=== PATIENT | male | born 1960 | race Caucasian/White ===

== ENCOUNTER 2017-01-14 13:52 | Emergency (ER) | payer OTHER ==
--- NOTE | 2017-01-14 14:34 | DIAGNOSTIC IMAGING REPORT ---
PROCEDURE: XR HAND 3 OR 4 VIEWS - RIGHT INDICATION: TRAUMA/INJURY TECHNIQUE: Four views. COMPARISON: None. FINDINGS: Laceration over the dorsum of the hand. No evidence of a radiopaque foreign body. No fracture. 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 IMPRESSION: 1. Laceration over the dorsum of the hand. No fracture or radiopaque foreign body.
--- NOTE | 2017-01-14 14:46 | ED CLINICAL REPORT ---
Clinical Report - Physicians/Mid Levels [facility] [address] [place] [address] 01/14/2017 13:52 Patient: NAHUN GÓMEZ Time Seen: 14:17 Jan 14 2017. Arrived- By private vehicle. Historian- patient. HISTORY OF PRESENT ILLNESS Location of injuries- right hand. Chief Complaint: DOG BITE. The injury occurred just prior to arrival. The animal reportedly appeared well and the immunization status of the animal is unknown. The animal was not captured. Occurred on a street. This was a "provoked" attack. No skin rash or dizziness. 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 Treatment INTERNAL MEDICINE PHYSICIAN ASSISTANT- (Dog bite from neighbors dog prior to arrival. Dog has been around and family has seen a doctor over the last few months, unsure of exactin his immunizations.). REVIEW OF SYSTEMS No headache, difficulty breathing, nausea or fever. All systems otherwise negative, except as recorded above. PAST HISTORY See nurses notes. L. Hand dominant, no prior R. hand injuries. Has not had a prior allergic reaction. Tetanus immunization status is unknown. SOCIAL HISTORY Smoker- current status unknown. Alcohol use. History of drug use: marijuana. Not an IV drug user. ADDITIONAL NOTES The nursing notes have been reviewed. PHYSICAL EXAM Vital Signs: 01/14/2017 13:59 BP: 152/80. HR: 101. RR: 18. O2 saturation: 97%. Temp: 98.2 F. Pain level now: 3/10. Appearance: Alert. No acute distress. No backboard or C-collar. Neck: Normal inspection. CVS: Heart sounds normal. Pulses normal. No JVD. Respiratory: Chest normal on inspection. Chest nontender. No chest wall injury. Back: Normal inspection. No tenderness. Skin: Skin warm. Extremities: Right hand: 3.0 cm laceration. SEE LACERATION PROCEDURE NOTE #1. (Vertical and horizontal laceration with a sharp 90 edge on the lateral dorsal aspect from the proximal hand extending into the ulnar aspect of the dorsal side. Good distal range of motion, extension of all digits, with no loss of sensation. Vascular intact.). Pelvis stable. Neuro: [place] Coma Scale: 15- eyes open spontaneously (4); best verbal response- oriented x 3 (5); best motor response- obeys commands (6). Oriented X 3. LABS, X-RAYS, AND EKG Rt Hand X-ray: (IMPRESSION: 1. Laceration over the dorsum of the hand. No fracture or radiopaque foreign body. Electronically Final signed by:Trev Reilly MD 01/14/2017 2:34:07 PM). PROGRESS AND PROCEDURES Laceration Repair: Time: 15:10 Jan 14 2017. Location: (r. hand). Time-out completed immediately before the procedure. Length: 4 cm. Complexity: simple (local anesthesia used and sutured). Wound depth/shape- curved and involving fascia. Wound is clean. Distal neuro/vascular/tendon status normal. Local anesthesia provided using 1% lidocaine with epi. Closure of skin: interrupted 4-0 (13 non absorb). Course of Care: Giving the length and the gaping nature of visits injury, laceration was repaired. Patient was given Augmentin. No signs of neurovascular compromise of fracture. No signs of foreign body. Patient very stable. Fall palpation. 01/14/2017 14:55 BP: 156/77. HR: 97. RR: 16. O2 saturation: 97%. Pain level now: 3/10. Patient is stable. Symptoms better. Patient/family counseled. Disposition: Discharged. CLINICAL IMPRESSION Dog bite to the right hand. INSTRUCTIONS Apply ice. Protect wound and keep wound area clean. Apply bacitracin twice daily. Sutures should be removed. Elevate affected areas above chest level. ([facility] Address: [address] [place] [address] [place]: Address: [address] [place] [address] ). Warnings: TETANUS: You were given a tetanus shot during your visit. Make a note for future reference. Prescription Medications: Hydrocodone/APAP 5mg / 325mg: take 1 orally every 6 hours as needed for pain. Dispense five (5). (prn breakthrough pain) Augmentin 875 mg: take 1 tablet orally every 12 hours for 7 days. Dispense fourteen (14). No refills. Substitution is permissible. Ibuprofen 800 mg tablets: take 1 tablet orally every 8 hours for 5 days, as needed for pain. Dispense ten (10). No refill. Follow-up with: Tj Harrell MD, Family [facility], , [facility], [address] [place] [address] Follow up in six days. Call for the next available appointment. (Electronically signed by Daiana Mayes P.A.-C 01/14/2017 15:10)
--- NOTE | 2017-01-14 14:46 | ED CLINICAL REPORT ---
Clinical Report - Physicians/Mid Levels [facility] [address] [place] [address] 01/14/2017 13:52 Patient: NAHUN GÓMEZ Time Seen: 14:17 Jan 14 2017. Arrived- By private vehicle. Historian- patient. HISTORY OF PRESENT ILLNESS Location of injuries- right hand. Chief Complaint: DOG BITE. The injury occurred just prior to arrival. The animal reportedly appeared well and the immunization status of the animal is unknown. The animal was not captured. Occurred on a street. This was a "provoked" attack. No skin rash or dizziness. 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 Treatment IMMERSION METAL CLEANER- (Dog bite from neighbors dog prior to arrival. Dog has been around and family has seen a doctor over the last few months, unsure of exactin his immunizations.). REVIEW OF SYSTEMS No headache, difficulty breathing, nausea or fever. All systems otherwise negative, except as recorded above. PAST HISTORY See nurses notes. L. Hand dominant, no prior R. hand injuries. Has not had a prior allergic reaction. Tetanus immunization status is unknown. SOCIAL HISTORY Smoker- current status unknown. Alcohol use. History of drug use: marijuana. Not an IV drug user. ADDITIONAL NOTES The nursing notes have been reviewed. PHYSICAL EXAM Vital Signs: 01/14/2017 13:59 BP: 152/80. HR: 101. RR: 18. O2 saturation: 97%. Temp: 98.2 F. Pain level now: 3/10. Appearance: Alert. No acute distress. No backboard or C-collar. Neck: Normal inspection. CVS: Heart sounds normal. Pulses normal. No JVD. Respiratory: Chest normal on inspection. Chest nontender. No chest wall injury. Back: Normal inspection. No tenderness. Skin: Skin warm. Extremities: Right hand: 3.0 cm laceration. SEE LACERATION PROCEDURE NOTE #1. (Vertical and horizontal laceration with a sharp 90 edge on the lateral dorsal aspect from the proximal hand extending into the ulnar aspect of the dorsal side. Good distal range of motion, extension of all digits, with no loss of sensation. Vascular intact.). Pelvis stable. Neuro: [place] Coma Scale: 15- eyes open spontaneously (4); best verbal response- oriented x 3 (5); best motor response- obeys commands (6). Oriented X 3. LABS, X-RAYS, AND EKG Rt Hand X-ray: (IMPRESSION: 1. Laceration over the dorsum of the hand. No fracture or radiopaque foreign body. Electronically Final signed by:Trev Reilly MD 01/14/2017 2:34:07 PM). PROGRESS AND PROCEDURES Laceration Repair: Time: 15:10 Jan 14 2017. Location: (r. hand). Time-out completed immediately before the procedure. Length: 4 cm. Complexity: simple (local anesthesia used and sutured). Wound depth/shape- curved and involving fascia. Wound is clean. Distal neuro/vascular/tendon status normal. Local anesthesia provided using 1% lidocaine with epi. Closure of skin: interrupted 4-0 (13 non absorb). Course of Care: Giving the length and the gaping nature of visits injury, laceration was repaired. Patient was given Augmentin. No signs of neurovascular compromise of fracture. No signs of foreign body. Patient very stable. Fall palpation. 01/14/2017 14:55 BP: 156/77. HR: 97. RR: 16. O2 saturation: 97%. Pain level now: 3/10. Patient is stable. Symptoms better. Patient/family counseled. Disposition: Discharged. CLINICAL IMPRESSION Dog bite to the right hand. INSTRUCTIONS Apply ice. Protect wound and keep wound area clean. Apply bacitracin twice daily. Sutures should be removed. Elevate affected areas above chest level. ([facility] Address: [address] [place] [address] [place]: Address: [address] [place] [address] ). Warnings: TETANUS: You were given a tetanus shot during your visit. Make a note for future reference. Prescription Medications: Hydrocodone/APAP 5mg / 325mg: take 1 orally every 6 hours as needed for pain. Dispense five (5). (prn breakthrough pain) Augmentin 875 mg: take 1 tablet orally every 12 hours for 7 days. Dispense fourteen (14). No refills. Substitution is permissible. Ibuprofen 800 mg tablets: take 1 tablet orally every 8 hours for 5 days, as needed for pain. Dispense ten (10). No refill. Follow-up with: Tj Harrell MD, Family [facility], , [facility], [address] [place] [address] Follow up in six days. Call for the next available appointment. (Electronically signed by Daiana Mayes P.A.-C 01/14/2017 15:10)
--- NOTE | 2017-01-14 14:46 | ED NURSING NOTES ---
Clinical Report - Nurses [facility] [address] [place] [address] 01/14/2017 13:52 Patient: NAHUN GÓMEZ TRIAGE Triage time 13:59. Acuity: LEVEL 4. Chief Complaint: DOG BITE. Alert. No acute distress. LILLY COMA SCORE: Lilly Coma Scale: 15- eyes open spontaneously (4); best verbal response- oriented x 4 (5); best motor response- obeys commands (6). --14:06 Rosy Howe R.N. 13:59 01/14/17. BP: 152/80. HR: 101. RR: 18. O2 saturation: 97%. Temp: 98.2 F (oral). Pain level now: 11/11. --14:06 Rosy Howe R.N. Weight: 90.7 kg. Height/Length: 71 inches. BMI: 27.9. --14:03 Rosy Howe R.N. Medications None. --14:02 Rosy Howe R.N. Medication/allergy information source: the patient. --14:06 Rosy Howe R.N. Allergies No Known Drug Allergy. --14:03 Rosy Howe R.N. History Arrived by private vehicle. Historian: patient. Accompanied by family. Primary physician (Shawn Richardson-in). Location of injuries: right hand. This occurred just prior to arrival. Animals were fighting. The animal reportedly appeared well. Animal control has been notified (not yet). PAST MEDICAL HX: Tetanus immunization status is not unknown. SOCIAL HX: Heavy tobacco smoker- less than 1 pack per day. Regular alcohol use. History of drug use: marijuana. FALL RISK ASSESSMENT: Fall risk assessment completed. No fall risk identified. FUNCTIONAL ASSESSMENT: Functional assessment: no impairments noted. LEARNING NEEDS ASSESSMENT: The learning needs assessment revealed no barriers. --14:06 Rosy Howe R.N. Assessment GENERAL / NEURO / PSYCH: Alert. Oriented X 4. Appears in no acute distress. Patient appears calm and cooperative. RESPIRATORY: Respirations not labored. SKIN: Skin is warm and dry. --14:06 Rosy Howe R.N. Interventions ID band on patient. To treatment room. --14:06 Rosy Howe R.N. PHYSICAL ASSESSMENT 14:01/14/17. Ambulatory to room. GENERAL / NEURO / PSYCH: Alert. Oriented X 4. Appears in no acute distress. RESPIRATORY: Respirations not labored. EXTREMITIES: ( lac on top of right hand , bleeding controlled). SKIN: Skin is warm and dry. --14:09 Rosy Howe R.N. NURSING PROGRESS NOTES 14:01/14/17. Call light placed in reach. Side rails up x 1. Bed placed in lowest position. Brakes of bed on. --14:10 Rosy Howe R.N. 14:22 01/14/2017 Augmentin (Amoxicillin-Pot Clavulanate) PO Tablets 875 mg given. Allergies verified and confirmed 5 rights. --14:22 Rosy Howe R.N. 14:23 01/14/2017 TDAP IM 0.5 mL given. (Lot#: [id number], expiration date: 06/11/2018, Obiee Obia Solution Architect: sanofi pasteur). Given in the left deltoid. Allergies verified and confirmed 5 rights. Vaccine information statement provided to the patient. --14:23 Rosy Howe R.N. Patient walked to radiology. Patient walked back to ED from radiology with tech. --14:23 Rosy Howe R.N. Applied clean dressing consisting of 4x4 gauze, following the application of antibiotic ointment (bacitracin). Secured with tape and kerlix. --14:50 Nico Avalos R.N. 14:55. Reassessment after wound repair. He is calm. Overall patient status is improved- he states feels better. CVS: Capillary refill is less than 2 seconds in the extremities. SKIN: Skin is warm and dry. --14:58 Rosy Howe R.N. 14:33 01/14/2017 Lidocaine-Epinephrine (Lidocaine-Epinephrine) Injection Injectable 2 % given. --14:58 Rosy Howe R.N. DISPOSITION / DISCHARGE Departure time: 1455. Condition at departure: improved and stable. No learning barriers present. Discharge instructions provided and reviewed with the patient. Reviewed medication(s). Prescription(s) given to the patient. Patient verbalized understanding. Written instructions provided in Urdu. The patient was discharged home and accompanied by spouse. He left the Emergency Department ambulatory and via private vehicle. FALL RISK ASSESSMENT: Fall risk assessment completed. No fall risk identified. --14:57 Rosy Howe R.N. 14:55 01/14/17. BP: 156/77. HR: 97. RR: 16. O2 saturation: 97% on room air. Pain level now: 11/11. --14:57 Rosy Howe R.N. Locked/Released at 01/14/2017 14:59 by Rosy Howe R.N.
--- NOTE | 2017-01-14 14:46 | ED NURSING NOTES ---
Clinical Report - Nurses [facility] [address] [place] [place] [address] 01/14/2017 13:52 Patient: NAHUN GÓMEZ TRIAGE Triage time 13:59. Acuity: LEVEL 4. Chief Complaint: DOG BITE. Alert. No acute distress. LILLY COMA SCORE: Lilly Coma Scale: 15- eyes open spontaneously (4); best verbal response- oriented x 4 (5); best motor response- obeys commands (6). --14:06 Rosy Howe R.N. 13:59 01/14/17. BP: 152/80. HR: 101. RR: 18. O2 saturation: 97%. Temp: 98.2 F (oral). Pain level now: 11/11. --14:06 Rosy Howe R.N. Weight: 90.7 kg. Height/Length: 71 inches. BMI: 27.9. --14:03 Rosy Howe R.N. Medications None. --14:02 Rosy Howe R.N. Medication/allergy information source: the patient. --14:06 Rosy Howe R.N. Allergies No Known Drug Allergy. --14:03 Rosy Howe R.N. History Arrived by private vehicle. Historian: patient. Accompanied by family. Primary physician (Shawn Richardson-in). Location of injuries: right hand. This occurred just prior to arrival. Animals were fighting. The animal reportedly appeared well. Animal control has been notified (not yet). PAST MEDICAL HX: Tetanus immunization status is not unknown. SOCIAL HX: Heavy tobacco smoker- less than 1 pack per day. Regular alcohol use. History of drug use: marijuana. FALL RISK ASSESSMENT: Fall risk assessment completed. No fall risk identified. FUNCTIONAL ASSESSMENT: Functional assessment: no impairments noted. LEARNING NEEDS ASSESSMENT: The learning needs assessment revealed no barriers. --14:06 Rosy Howe R.N. Assessment GENERAL / NEURO / PSYCH: Alert. Oriented X 4. Appears in no acute distress. Patient appears calm and cooperative. RESPIRATORY: Respirations not labored. SKIN: Skin is warm and dry. --14:06 Rosy Howe R.N. Interventions ID band on patient. To treatment room. --14:06 Rosy Howe R.N. PHYSICAL ASSESSMENT 14:01/14/17. Ambulatory to room. GENERAL / NEURO / PSYCH: Alert. Oriented X 4. Appears in no acute distress. RESPIRATORY: Respirations not labored. EXTREMITIES: ( lac on top of right hand , bleeding controlled). SKIN: Skin is warm and dry. --14:09 Rosy Howe R.N. NURSING PROGRESS NOTES 14:01/14/17. Call light placed in reach. Side rails up x 1. Bed placed in lowest position. Brakes of bed on. --14:10 Rosy Howe R.N. 14:22 01/14/2017 Augmentin (Amoxicillin-Pot Clavulanate) PO Tablets 875 mg given. Allergies verified and confirmed 5 rights. --14:22 Rosy Howe R.N. 14:23 01/14/2017 TDAP IM 0.5 mL given. (Lot#: [id number], expiration date: 06/11/2018, Loom Repairer: sanofi pasteur). Given in the left deltoid. Allergies verified and confirmed 5 rights. Vaccine information statement provided to the patient. --14:23 Rosy Howe R.N. Patient walked to radiology. Patient walked back to ED from radiology with tech. --14:23 Rosy Howe R.N. Applied clean dressing consisting of 4x4 gauze, following the application of antibiotic ointment (bacitracin). Secured with tape and kerlix. --14:50 Nico Avalos R.N. 14:55. Reassessment after wound repair. He is calm. Overall patient status is improved- he states feels better. CVS: Capillary refill is less than 2 seconds in the extremities. SKIN: Skin is warm and dry. --14:58 Rosy Howe R.N. 14:33 01/14/2017 Lidocaine-Epinephrine (Lidocaine-Epinephrine) Injection Injectable 2 % given. --14:58 Rosy Howe R.N. DISPOSITION / DISCHARGE Departure time: 1455. Condition at departure: improved and stable. No learning barriers present. Discharge instructions provided and reviewed with the patient. Reviewed medication(s). Prescription(s) given to the patient. Patient verbalized understanding. Written instructions provided in Belarusian. The patient was discharged home and accompanied by spouse. He left the Emergency Department ambulatory and via private vehicle. FALL RISK ASSESSMENT: Fall risk assessment completed. No fall risk identified. --14:57 Rosy Howe R.N. 14:55 01/14/17. BP: 156/77. HR: 97. RR: 16. O2 saturation: 97% on room air. Pain level now: 11/11. --14:57 Rosy Howe R.N. Locked/Released at 01/14/2017 14:59 by Rosy Howe R.N.
--- NOTE | 2017-01-14 14:46 | ED ORDER SUMMARY ---
..... Patient: NAHUN GÓMEZ OrderSheet [facility] VisitID: [id number] [address] [place] [address] 56y, M Registration Date/Time: 01/14/2017 ORDER SHEET Weight: 90.7 kg Allergies: No Known Drug Allergy GENERAL ORDERS: Hand 3 or 4V Right Urgent (14:04 01/14/2017 Fran P.A.-C) (Ack 14:09 TBerglkylee) (14:17 TBerglkylee) (14:18 Vanda) MEDICATION ORDERS: Tdap IM 0.5 mL (NOW, per protocol) (14:03 01/14/2017 Fran P.A.-C) (Ack 14:08 Catherine R.N.) (14:23 Catherine R.N.) Lidocaine-Epinephrine Injection 2 % (soln) (NOW, place at bedside, with syringes & needles) (14:03 01/14/2017 Fran Hemphill.A.-C) (Ack 14:08 Catherine R.N.) (14:58 Catherine R.N.) Augmentin PO 875 mg (NOW) (14:04 01/14/2017 Fran P.A.-C) (Ack 14:08 Catherine R.N.) (14:22 Catherine R.N.) IV FLUIDS: ORDER SHEET NOTES: [Electronically signed by Rosy Howe R.N. (14:58 01/14/2017)] [Electronically signed by Daiana Mayes P.A.-C (15:10 01/14/2017)] [Electronically locked/signed by Rosy Howe R.N. (14:58 01/14/2017)]
--- NOTE | 2017-01-14 14:46 | ED ORDER SUMMARY ---
..... Patient: NAHUN GÓMEZ OrderSheet [facility] VisitID: [id number] [address] [place] [address] 56y, M Registration Date/Time: 01/14/2017 ORDER SHEET Weight: 90.7 kg Allergies: No Known Drug Allergy GENERAL ORDERS: Hand 3 or 4V Right Urgent (14:04 01/14/2017 Fran P.A.-C) (Ack 14:09 TBerglkylee) (14:17 TBerglkylee) (14:18 Vanda) MEDICATION ORDERS: Tdap IM 0.5 mL (NOW, per protocol) (14:03 01/14/2017 Fran P.A.-C) (Ack 14:08 Catherine R.N.) (14:23 Catherine R.N.) Lidocaine-Epinephrine Injection 2 % (soln) (NOW, place at bedside, with syringes & needles) (14:03 01/14/2017 Fran Hemphill.A.-C) (Ack 14:08 Catherine R.N.) (14:58 Catherine R.N.) Augmentin PO 875 mg (NOW) (14:04 01/14/2017 Fran P.A.-C) (Ack 14:08 Catherine R.N.) (14:22 Catherine R.N.) IV FLUIDS: ORDER SHEET NOTES: [Electronically signed by Rsoy Howe R.N. (14:58 01/14/2017)] [Electronically signed by Daiana Mayes P.A.-C (15:10 01/14/2017)] [Electronically locked/signed by Rosy Howe R.N. (14:58 01/14/2017)]
--- NOTE | 2017-01-14 15:10 | ED MED RECONCILIATION SUMMARY ---
Patient: NAHUN GÓMEZ Medication Reconciliation Report [facility] VisitID: [id number] [address] [place] [address] 56y, M Registration Date/Time: 01/14/2017 Weight: 90.7 kg Height/Length: 71 in. BMI: 27.9 ALLERGIES: No Known Drug Allergy The patient's Home Medications are listed below: NONE. The source(s) of the original Home Medication information: patient The following Medications were given to the patient in the Emergency Department: Augmentin [PO] PO 875 mg, administered: 01/14/2017 2:22:00 PM TDAP [IM] IM 0.5 mL, administered: 01/14/2017 2:23:00 PM Lidocaine-Epinephrine [Injection] Injection 2 %, administered: 01/14/2017 2:33:00 PM The following Medications were prescribed to the patient: Hydrocodone/APAP 5mg / 325mg: take 1 orally every 6 hours as needed for pain. Dispense five (5).(prn breakthrough pain) -- Daiana Mayes, P.A.-C Augmentin 875 mg: take 1 tablet orally every 12 hours for 7 days. Dispense fourteen (14). No refills. Substitution is permissible. -- Daiana Mayes, P.A.-[place] Ibuprofen 800 mg tablets: take 1 tablet orally every 8 hours for 5 days, as needed for pain. Dispense ten (10). No refill. -- Daiana Mayes, P.A.-C
--- NOTE | 2017-01-14 15:10 | ED MAR SUMMARY ---
..... Medication Administration Record [facility] [address] [place] [address] Patient: NAHUN GÓMEZ Visit ID: [id number] 56y, M Weight: 90.7 kg Height/Length: 71 in BMI: 27.9 ALLERGIES: No Known Drug Allergy Given 14:22 01/14/2017 Rosy Howe R.N. Medication Administered: AUGMENTIN [PO] (AMOXICILLIN-POT CLAVULANATE), Dose: 875 mg Tablets PO. Medication Ordered: Augmentin PO 875 mg (NOW). Given 14:23 01/14/2017 Rosy Howe RDanielaNDaniela Medication Administered: TDAP [IM], Dose: 0.5 mL IM. Medication Ordered: Tdap IM 0.5 mL (NOW, per protocol). Given 14:33 01/14/2017 Rosy Howe, RDanielaN. Medication Administered: LIDOCAINE-EPINEPHRINE [INJECTION] (LIDOCAINE-EPINEPHRINE), Dose: 2 % Injectable Injection. Medication Ordered: Lidocaine-Epinephrine Injection 2 % (soln) (NOW, place at bedside, with syringes & needles).
--- NOTE | 2017-01-14 15:10 | ED MED RECONCILIATION SUMMARY ---
Patient: NAHUN GÓMEZ Medication Reconciliation Report [facility] VisitID: [id number] [address] [place] [address] 56y, M Registration Date/Time: 01/14/2017 Weight: 90.7 kg Height/Length: 71 in. BMI: 27.9 ALLERGIES: No Known Drug Allergy The patient's Home Medications are listed below: NONE. The source(s) of the original Home Medication information: patient The following Medications were given to the patient in the Emergency Department: Augmentin [PO] PO 875 mg, administered: 01/14/2017 2:22:00 PM TDAP [IM] IM 0.5 mL, administered: 01/14/2017 2:23:00 PM Lidocaine-Epinephrine [Injection] Injection 2 %, administered: 01/14/2017 2:33:00 PM The following Medications were prescribed to the patient: Hydrocodone/APAP 5mg / 325mg: take 1 orally every 6 hours as needed for pain. Dispense five (5).(prn breakthrough pain) -- Daiana Mayes, P.A.-C Augmentin 875 mg: take 1 tablet orally every 12 hours for 7 days. Dispense fourteen (14). No refills. Substitution is permissible. -- Daiana Mayes, P.A.-[place] Ibuprofen 800 mg tablets: take 1 tablet orally every 8 hours for 5 days, as needed for pain. Dispense ten (10). No refill. -- Daiana Mayes, P.A.-C
--- NOTE | 2017-01-14 15:10 | ED DISCHARGE INSTRUCTIONS ---
Patient: NAHUN GÓMEZ General Instructions [facility] VisitID: [id number] [address] [place] [address] 56y, M Registration Date/Time: 01/14/2017 Dog bite to the right hand. INSTRUCTIONS Apply ice. Protect wound and keep wound area clean. Apply bacitracin twice daily. Sutures should be removed. Elevate affected areas above chest level. ([facility] Address: [address] [place] [address] [place]: Address: [address] [facility] [place] [address] ). Warnings: TETANUS: You were given a tetanus shot during your visit. Make a note for future reference. Prescription Medications: Hydrocodone/APAP 5mg / 325mg: take 1 orally every 6 hours as needed for pain. Dispense five (5). (prn breakthrough pain) Augmentin 875 mg: take 1 tablet orally every 12 hours for 7 days. Dispense fourteen (14). No refills. Substitution is permissible. Ibuprofen 800 mg tablets: take 1 tablet orally every 8 hours for 5 days, as needed for pain. Dispense ten (10). No refill. Follow-up with: Tj Harrell MD, [facility], , [facility], [address] [place] [address] Follow up in six days. Call for the next available appointment. ADDITIONAL INFORMATION Dog Bite If a dog has bitten you and the wound is deep enough to break the skin, an infection may occur. Therefore, you should watch for the warning signs listed below. The doctor may not close the wound completely. This is to allow fluid to drain in the event of an infection. Home Care Watch the wound for signs of infection listed below. In certain types of bites, antibiotics may be prescribed. Begin taking these as soon as possible, as directed until they are all gone. Rabies Prevention If you live in an area where rabies occurs in wild animals, the rabies virus can be passed to cats and dogs. An infected animal can pass the rabies virus to you during a bite. If ahealthy-looking pet dog has bitten you, it should be kept in a secure area for the next 10 days to watch for signs of illness. If the pet plant operations manager wont cooperate with you, contact the [facility] animal control department (or local law enforcement). If the animal becomes ill or dies [id number] days, contact your animal control department at once. The animal must be tested for rabies. If the animal stays healthy for the next 10 days, then there is no danger of rabies in the dog or you. Pets fully vaccinated against rabies (2 shots) are at very low risk for the infection. However, because human rabies is almost always fatal, any biting dog should be kept in confinement for 10 days as an extra precaution. If a stray dog bit you, contact the animal control department. They can provide information on capture, quarantine, and animal rabies testing. If you are unable to locate the animal that bit you in the next 2days, and if rabies exists in your region, you must be evaluated for the rabies vaccine series. Contact your doctor or return here promptly. All animal bites should be reported to the [facility] animal control department. If you were not given a form to fill out, you can report it yourself by calling. Follow Up with your doctor as advised. Most skin wounds heal within 10 days. However, an infection may occur even with proper treatment. Check your woundevery 6 hoursfor 2 days, then at least once a day for the next two days for the signs of infection listed below. Get Prompt Medical Attention if any of the following occur: Signs of infection: Spreading redness Increased pain or swelling Fever of 100.4F (38C) or higher, or as directed by your healthcare provider Colored fluid or pus draining from the wound Headache, confusion, strange behavior, or a seizure (signs of a rabies infection) Diphtheria Toxoid Adsorbed, Pertussis Vaccine, Acellular (Adsorbed), Tetanus Toxoid, Adsorbed Suspension for injection What is this medicine? DIPHTHERIA and TETANUS TOXOIDS; PERTUSSIS VACCINE (dif THEER ee uh and TET n us TOK soids; per TUS shashank vasquez SEEN) is used to prevent diphtheria, tetanus, and pertussis infections. How should I use this medicine? This vaccine is for injection into a muscle. It is given by a health health care sanitary technician. A copy of Vaccine Information Statements will be given before each vaccination. Read this sheet carefully each time. The sheet may change frequently. Talk to your setter molding and coremaking machines regarding the use of this vaccine in children. While the DTP vaccine may be given to children ages 6 weeks to 7 years and the Tdap vaccine may be given to children at least 10 years old, precautions do apply. What side effects may I notice from receiving this medicine? Side effects that you should report to your doctor or health health care sanitary technician as soon as possible: allergic reactions like skin rash, itching or hives, swelling of the face, lips, or tongue breathing problems fever of 103 degrees F or more flu-like symptoms inconsolable crying infection pain, tingling, numbness in the hands or feet seizures swelling of arm or leg that was injected unusually weak or tired Side effects that usually do not require immediate medical attention (report these side effects to your doctor or health health care sanitary technician if they continue or are bothersome): fussy, irritable loss of appetite fever of 102 degrees F or less pain, tenderness, redness, swelling, or a 'knot' at site where injected vomiting What may interact with this medicine? immune globulin medicines that suppress your immune function like adalimumab, anakinra, infliximab medicines to treat cancer medicines that treat or prevent blood clots like warfarin, enoxaparin, and dalteparin steroid medicines like prednisone or cortisone What if I miss a dose? It is important not to miss your dose. Call your doctor or health health care sanitary technician if you are unable to keep an appointment. Where should I keep my medicine? This drug is given in a hospital or clinic and will not be stored at home. What should I tell my health care provider before I take this medicine? They need to know if you have any of these conditions: blood disorders like hemophilia fever or infection immune system problems neurologic disease seizures an unusual or allergic reaction to vaccines, thimerosal, latex, other medicines, foods, dyes, or preservatives or trying to get breast-feeding What should I watch for while using this medicine? See your health care provider for all shots of this vaccine as directed. To have protection from infection, you must have 3 shots of this vaccine plus boosters as needed. Tell your doctor right away if you have any serious or unusual side effects after getting this vaccine. Hydrocodone Bitartrate, Acetaminophen Oral tablet What is this medicine? ACETAMINOPHEN; HYDROCODONE (a set a PRINCE tracy fen; vishal droe KOE done) is a pain reliever. It is used to treat mild to moderate pain. How should I use this medicine? Take this medicine by mouth. Swallow it with a full glass of water. Follow the directions on the prescription label. If the medicine upsets your stomach, take the medicine with food or milk. Do not take more than you are told to take. Talk to your setter molding and coremaking machines regarding the use of this medicine in children. This medicine is not approved for use in children. What side effects may I notice from receiving this medicine? Side effects that you should report to your doctor or health health care sanitary technician as soon as possible: allergic reactions like skin rash, itching or hives, swelling of the face, lips, or tongue breathing problems confusion feeling faint or lightheaded, falls stomach pain yellowing of the eyes or skin Side effects that usually do not require medical attention (report to your doctor or health health care sanitary technician if they continue or are bothersome): nausea, vomiting stomach upset What may interact with this medicine? alcohol antihistamines isoniazid medicines for depression, anxiety, or psychotic disturbances medicines for sleep muscle relaxants naltrexone narcotic medicines (opiates) for pain phenobarbital ritonavir tramadol What if I miss a dose? If you miss a dose, take it as soon as you can. If it is almost time for your next dose, take only that dose. Do not take double or extra doses. Where should I keep my medicine? Keep out of the reach of children. This medicine can be abused. Keep your medicine in a safe place to protect it from theft. Do not share this medicine with anyone. Selling or giving away this medicine is dangerous and against the law. Store at room temperature between 15 and 30 degrees C (59 and 86 degrees F). Protect from light. Keep container tightly closed. Throw away any unused medicine after the expiration date. Discard unused medicine and used packaging carefully. Pets and children can be harmed if they find used or lost packages. What should I tell my health care provider before I take this medicine? They need to know if you have any of these conditions: brain tumor Crohn's disease, inflammatory bowel disease, or ulcerative colitis drink more than 3 alcohol-containing drinks per day drug abuse or addiction head injury heart or circulation problems kidney disease or problems going to the bathroom liver disease lung disease, asthma, or breathing problems an unusual or allergic reaction to acetaminophen, hydrocodone, other opioid analgesics, other medicines, foods, dyes, or preservatives or trying to get breast-feeding What should I watch for while using this medicine? Tell your doctor or health health care sanitary technician if your pain does not go away, if it gets worse, or if you have new or a different type of pain. You may develop tolerance to the medicine. Tolerance means that you will need a higher dose of the medicine for pain relief. Tolerance is normal and is expected if you take the medicine for a long time. Do not suddenly stop taking your medicine because you may develop a severe reaction. Your body becomes used to the medicine. This does NOT mean you are addicted. Addiction is a behavior related to getting and using a drug for a non-medical reason. If you have pain, you have a medical reason to take pain medicine. Your doctor will tell you how much medicine to take. If your doctor wants you to stop the medicine, the dose will be slowly lowered over time to avoid any side effects. You may get drowsy or dizzy when you first start taking the medicine or change doses. Do not drive, use machinery, or do anything that may be dangerous until you know how the medicine affects you. Stand or sit up slowly. There are different types of narcotic medicines (opiates) for pain. If you take more than one type at the same time, you may have more side effects. Give your health care provider a list of all medicines you use. Your doctor will tell you how much medicine to take. Do not take more medicine than directed. Call emergency for help if you have problems breathing. The medicine will cause constipation. Try to have a bowel movement at least every 2 to 3 days. If you do not have a bowel movement for 3 days, call your doctor or health health care sanitary technician. Too much acetaminophen can be very dangerous. Do not take Tylenol (acetaminophen) or medicines that contain acetaminophen with this medicine. Many non-prescription medicines contain acetaminophen. Always read the labels carefully. You have been given the following additional information: Dog Bite Diphtheria Toxoid Adsorbed, Pertussis Vaccine, Acellular (Adsorbed), Tetanus Toxoid, Adsorbed Suspension for injection Hydrocodone Bitartrate, Acetaminophen Oral tablet (Electronically signed by Daiana Mayes P.A.-C 01/14/2017 15:10)
--- NOTE | 2017-01-14 15:10 | ED DISCHARGE INSTRUCTIONS ---
Patient: NAHUN GÓMEZ General Instructions [facility] VisitID: [id number] [address] [place] [address] 56y, M Registration Date/Time: 01/14/2017 Dog bite to the right hand. INSTRUCTIONS Apply ice. Protect wound and keep wound area clean. Apply bacitracin twice daily. Sutures should be removed. Elevate affected areas above chest level. ([facility] Address: [address] [place] [address] [place]: Address: [address] [place] [address] ). Warnings: TETANUS: You were given a tetanus shot during your visit. Make a note for future reference. Prescription Medications: Hydrocodone/APAP 5mg / 325mg: take 1 orally every 6 hours as needed for pain. Dispense five (5). (prn breakthrough pain) Augmentin 875 mg: take 1 tablet orally every 12 hours for 7 days. Dispense fourteen (14). No refills. Substitution is permissible. Ibuprofen 800 mg tablets: take 1 tablet orally every 8 hours for 5 days, as needed for pain. Dispense ten (10). No refill. Follow-up with: Tj Harrell MD, [facility], , [facility], [address] [place] [address] Follow up in six days. Call for the next available appointment. ADDITIONAL INFORMATION Dog Bite If a dog has bitten you and the wound is deep enough to break the skin, an infection may occur. Therefore, you should watch for the warning signs listed below. The doctor may not close the wound completely. This is to allow fluid to drain in the event of an infection. Home Care Watch the wound for signs of infection listed below. In certain types of bites, antibiotics may be prescribed. Begin taking these as soon as possible, as directed until they are all gone. Rabies Prevention If you live in an area where rabies occurs in wild animals, the rabies virus can be passed to cats and dogs. An infected animal can pass the rabies virus to you during a bite. If ahealthy-looking pet dog has bitten you, it should be kept in a secure area for the next 10 days to watch for signs of illness. If the pet otr owner operator wont cooperate with you, contact the [facility] animal control department (or local law enforcement). If the animal becomes ill or dies [id number] days, contact your animal control department at once. The animal must be tested for rabies. If the animal stays healthy for the next 10 days, then there is no danger of rabies in the dog or you. Pets fully vaccinated against rabies (2 shots) are at very low risk for the infection. However, because human rabies is almost always fatal, any biting dog should be kept in confinement for 10 days as an extra precaution. If a stray dog bit you, contact the animal control department. They can provide information on capture, quarantine, and animal rabies testing. If you are unable to locate the animal that bit you in the next 2days, and if rabies exists in your region, you must be evaluated for the rabies vaccine series. Contact your doctor or return here promptly. All animal bites should be reported to the [facility] animal control department. If you were not given a form to fill out, you can report it yourself by calling. Follow Up with your doctor as advised. Most skin wounds heal within 10 days. However, an infection may occur even with proper treatment. Check your woundevery 6 hoursfor 2 days, then at least once a day for the next two days for the signs of infection listed below. Get Prompt Medical Attention if any of the following occur: Signs of infection: Spreading redness Increased pain or swelling Fever of 100.4F (38C) or higher, or as directed by your healthcare provider Colored fluid or pus draining from the wound Headache, confusion, strange behavior, or a seizure (signs of a rabies infection) Diphtheria Toxoid Adsorbed, Pertussis Vaccine, Acellular (Adsorbed), Tetanus Toxoid, Adsorbed Suspension for injection What is this medicine? DIPHTHERIA and TETANUS TOXOIDS; PERTUSSIS VACCINE (dif THEER ee uh and TET n us TOK soids; per TUS shashank vasquez SEEN) is used to prevent diphtheria, tetanus, and pertussis infections. How should I use this medicine? This vaccine is for injection into a muscle. It is given by a health direct care professional. A copy of Vaccine Information Statements will be given before each vaccination. Read this sheet carefully each time. The sheet may change frequently. Talk to your spooling machine operator regarding the use of this vaccine in children. While the DTP vaccine may be given to children ages 6 weeks to 7 years and the Tdap vaccine may be given to children at least 10 years old, precautions do apply. What side effects may I notice from receiving this medicine? Side effects that you should report to your doctor or health direct care professional as soon as possible: allergic reactions like skin rash, itching or hives, swelling of the face, lips, or tongue breathing problems fever of 103 degrees F or more flu-like symptoms inconsolable crying infection pain, tingling, numbness in the hands or feet seizures swelling of arm or leg that was injected unusually weak or tired Side effects that usually do not require immediate medical attention (report these side effects to your doctor or health direct care professional if they continue or are bothersome): fussy, irritable loss of appetite fever of 102 degrees F or less pain, tenderness, redness, swelling, or a 'knot' at site where injected vomiting What may interact with this medicine? immune globulin medicines that suppress your immune function like adalimumab, anakinra, infliximab medicines to treat cancer medicines that treat or prevent blood clots like warfarin, enoxaparin, and dalteparin steroid medicines like prednisone or cortisone What if I miss a dose? It is important not to miss your dose. Call your doctor or health direct care professional if you are unable to keep an appointment. Where should I keep my medicine? This drug is given in a hospital or clinic and will not be stored at home. What should I tell my health care provider before I take this medicine? They need to know if you have any of these conditions: blood disorders like hemophilia fever or infection immune system problems neurologic disease seizures an unusual or allergic reaction to vaccines, thimerosal, latex, other medicines, foods, dyes, or preservatives or trying to get breast-feeding What should I watch for while using this medicine? See your health care provider for all shots of this vaccine as directed. To have protection from infection, you must have 3 shots of this vaccine plus boosters as needed. Tell your doctor right away if you have any serious or unusual side effects after getting this vaccine. Hydrocodone Bitartrate, Acetaminophen Oral tablet What is this medicine? ACETAMINOPHEN; HYDROCODONE (a set a PRINCE tracy fen; vishal droe KOE done) is a pain reliever. It is used to treat mild to moderate pain. How should I use this medicine? Take this medicine by mouth. Swallow it with a full glass of water. Follow the directions on the prescription label. If the medicine upsets your stomach, take the medicine with food or milk. Do not take more than you are told to take. Talk to your spooling machine operator regarding the use of this medicine in children. This medicine is not approved for use in children. What side effects may I notice from receiving this medicine? Side effects that you should report to your doctor or health direct care professional as soon as possible: allergic reactions like skin rash, itching or hives, swelling of the face, lips, or tongue breathing problems confusion feeling faint or lightheaded, falls stomach pain yellowing of the eyes or skin Side effects that usually do not require medical attention (report to your doctor or health direct care professional if they continue or are bothersome): nausea, vomiting stomach upset What may interact with this medicine? alcohol antihistamines isoniazid medicines for depression, anxiety, or psychotic disturbances medicines for sleep muscle relaxants naltrexone narcotic medicines (opiates) for pain phenobarbital ritonavir tramadol What if I miss a dose? If you miss a dose, take it as soon as you can. If it is almost time for your next dose, take only that dose. Do not take double or extra doses. Where should I keep my medicine? Keep out of the reach of children. This medicine can be abused. Keep your medicine in a safe place to protect it from theft. Do not share this medicine with anyone. Selling or giving away this medicine is dangerous and against the law. Store at room temperature between 15 and 30 degrees C (59 and 86 degrees F). Protect from light. Keep container tightly closed. Throw away any unused medicine after the expiration date. Discard unused medicine and used packaging carefully. Pets and children can be harmed if they find used or lost packages. What should I tell my health care provider before I take this medicine? They need to know if you have any of these conditions: brain tumor Crohn's disease, inflammatory bowel disease, or ulcerative colitis drink more than 3 alcohol-containing drinks per day drug abuse or addiction head injury heart or circulation problems kidney disease or problems going to the bathroom liver disease lung disease, asthma, or breathing problems an unusual or allergic reaction to acetaminophen, hydrocodone, other opioid analgesics, other medicines, foods, dyes, or preservatives or trying to get breast-feeding What should I watch for while using this medicine? Tell your doctor or health direct care professional if your pain does not go away, if it gets worse, or if you have new or a different type of pain. You may develop tolerance to the medicine. Tolerance means that you will need a higher dose of the medicine for pain relief. Tolerance is normal and is expected if you take the medicine for a long time. Do not suddenly stop taking your medicine because you may develop a severe reaction. Your body becomes used to the medicine. This does NOT mean you are addicted. Addiction is a behavior related to getting and using a drug for a non-medical reason. If you have pain, you have a medical reason to take pain medicine. Your doctor will tell you how much medicine to take. If your doctor wants you to stop the medicine, the dose will be slowly lowered over time to avoid any side effects. You may get drowsy or dizzy when you first start taking the medicine or change doses. Do not drive, use machinery, or do anything that may be dangerous until you know how the medicine affects you. Stand or sit up slowly. There are different types of narcotic medicines (opiates) for pain. If you take more than one type at the same time, you may have more side effects. Give your health care provider a list of all medicines you use. Your doctor will tell you how much medicine to take. Do not take more medicine than directed. Call emergency for help if you have problems breathing. The medicine will cause constipation. Try to have a bowel movement at least every 2 to 3 days. If you do not have a bowel movement for 3 days, call your doctor or health direct care professional. Too much acetaminophen can be very dangerous. Do not take Tylenol (acetaminophen) or medicines that contain acetaminophen with this medicine. Many non-prescription medicines contain acetaminophen. Always read the labels carefully. You have been given the following additional information: Dog Bite Diphtheria Toxoid Adsorbed, Pertussis Vaccine, Acellular (Adsorbed), Tetanus Toxoid, Adsorbed Suspension for injection Hydrocodone Bitartrate, Acetaminophen Oral tablet (Electronically signed by Daiana Mayes P.A.-C 01/14/2017 15:10)
--- NOTE | 2017-01-14 15:10 | ED MAR SUMMARY ---
..... Medication Administration Record [facility] [address] [place] [address] Patient: NAHUN GÓMEZ Visit ID: [id number] 56y, M Weight: 90.7 kg Height/Length: 71 in BMI: 27.9 ALLERGIES: No Known Drug Allergy Given 14:22 01/14/2017 Rosy Howe R.N. Medication Administered: AUGMENTIN [PO] (AMOXICILLIN-POT CLAVULANATE), Dose: 875 mg Tablets PO. Medication Ordered: Augmentin PO 875 mg (NOW). Given 14:23 01/14/2017 Rosy Howe RDanielaNDaniela Medication Administered: TDAP [IM], Dose: 0.5 mL IM. Medication Ordered: Tdap IM 0.5 mL (NOW, per protocol). Given 14:33 01/14/2017 Rosy Howe, RDanielaN. Medication Administered: LIDOCAINE-EPINEPHRINE [INJECTION] (LIDOCAINE-EPINEPHRINE), Dose: 2 % Injectable Injection. Medication Ordered: Lidocaine-Epinephrine Injection 2 % (soln) (NOW, place at bedside, with syringes & needles).
== END 2017-01-14 14:55 | disposition home or self-care (01) ==
LOC: ED SRH 13:52
DX: S61.451A Open bite of right hand, initial encounter (principal); W54.0XXA Bitten by dog, initial encounter; Y93.9 Activity, unspecified; Y99.9 Unspecified external cause status; Y92.414 Local residential or business street as the place of occurrence of the external cause; Z23 Encounter for immunization